=== PATIENT | female | born 1975 ===

== ENCOUNTER 2016-11-13 09:12 | Emergency (ER) | payer MEDICAID, OTHER ==
[2016-11-13 10:03] VITALS: BMI 34.0
[2016-11-13] MEDS ORDERED: Lactated Ringer's 1,000 ML IV SCH (10:15)
[2016-11-13 11:09] LABS: HEMOGLOBIN 10.2 g/dL (12.0-16.0); MEAN CORPUSCULAR HEMOGLOBIN 24.9 pg (27.0-31.0); MEAN CORPUSCULAR HGB CONC 30.7 g/dL (33.0-37.0); RBC 4.09 Mil/uL (3.80-5.20); RED CELL DISTRIBUTION WIDTH 14.8 % (11.5-14.5)
[2016-11-13 11:22] LABS: ALBUMIN 3.2 g/dL (3.5-5.0); ALT/SGPT 30 U/L (9-52); AST/SGOT 33 U/L (14-36); BLOOD UREA NITROGEN 5 mg/dl (7-17); CALCIUM 8.9 mg/dL (8.4-10.2); GFR AFRICAN-AMERICAN > 60; GFR NON-AFRICAN AMERICAN > 60
[2016-11-13 11:59] LABS: SQUAMOUS EPITHIAL 2 /hpf (0-5); URINE AMORPHOUS SEDIMENT RARE /ul (<OCC); URINE BACTERIA OCC (<OCC); URINE BILIRUBIN NEGATIVE (NEGATIVE); URINE BLOOD NEGATIVE (NEGATIVE); URINE CLARITY CLOUDY (Clear); URINE COLOR YELLOW (YELLOW); URINE GLUCOSE (UA) NEG (Normal); URINE HYALINE CAST 0-2 /hpf (0-2); URINE LEUKOCYTE ESTERASE NEG Leu/uL (Negative); URINE NITRATE NEGATIVE (NEGATIVE); URINE PROTEIN NEGATIVE (NEGATIVE); URINE UROBILINOGEN 0.2-1.0 mg/dL (0.2-1.0)
== END 2016-11-13 12:34 | disposition home or self-care (01) ==
LOC: H.EROB2 09:12 → H.L&D 09:28 → H.EROB2 12:34
DX: O47.1 False labor at or after 37 completed weeks of gestation (principal); Z3A.38 38 weeks gestation of pregnancy

== ENCOUNTER 2016-11-17 08:51 | Emergency (ER) | payer OTHER ==
--- NOTE | 2016-11-17 09:07 | OBHP ---
Datetime: 11/13/2016 13:29 IP Adm Impression: , intrauterine IP Chief Complaint Other: pelvic pressure IP Admit Plan: Observation/Evaluation; Discharge home Admit Comment, IP Provider: Patient is a @ 36.1 wks with complaint of pelvic pressure. Patie nt denies vaginal bleeding, leaking, +FM, some urinary frequency. Patient has a history of Gastric by pass, abdominalplasty, AMA, genital herpes, otherwise no abnormal antepartum issues, no other medical /surgical problems, taking Valcyclovir and vitamins, no allergies VE=3/50/-4 [id number] mod ernesto, +accels, no decels TOCO = no contractions A/P 1. Patient presented complaining of increased pelvic pressure. Patient was monitored for a few tito rs, VE=3cm, unchanged, no contractions noted. UA negative, WBC=13 but no abdominal tenderness, no fev er, no other complaints of labor or chorio 2. Patient ruled out for labor, will discharge home. Labor precautions reviewed, follow up with ap pointment in the office this week 11/17 Pelvic Type - PN: Adequate Extremities - PN: Normal Abdomen - PN: Normal Back - PN: Normal Breast - PN: Normal Lungs - PN: Normal Heart - PN: Normal Thyroid - PN: Normal Neurologic - PN: Normal HEENT - PN: Normal General - PN: Normal FHR - Baseline A Provider: 130 Contraction Comments Provider: none Vital Signs Provider: Reviewed; Within Normal Limits NICHD Variability Prov Fetus A: Moderate 6-25bpm NICHD Accel Fetus A IP Provider: 15X15 NICHD Decel Fetus A IP Provider: None Dilatation, Provider: 3 Effacement, Provider: 50 Station, Provider: -4 Genitourinary Exam: Normal DTRs - PN: Normal
[2016-11-17 09:22] VITALS: BMI 33.4
--- NOTE | 2016-11-18 13:59 | OBHP ---
Datetime: 11/17/2016 08:16 IP Adm Impression: , intrauterine ; No Active Labor IP Admit Plan: Observation/Evaluation; Discharge home Admit Comment, IP Provider: 41-year-old 0-3 at 36 weeks and 4 days gestational age presents to OB ED complaining abdominal pelvic discomfort. Patient denies any contractions, vaginal bleeding, wh ich includes. Patient reports good movement. Otherwise, patient without complaints Past medical history mild asthma, advanced maternal age, genital herpes Past surgical history abdominoplasty, breast augmentation, ectopic Medications vitamins, prophylactic Valtrex No known drug allergies Obstetrical history full-term normal spontaneous vaginal delivery 3 Social history no tobacco, drugs, no alcohol Physical exam: Deferred physical exam findings Assessment: Annual 0-3 at 36 weeks 4 days gestational age. No evidence of labor this time. Maternal well-being and well-being reassuring at this time. Plan: Discharge patient home. Patient to follow up in office as already scheduled. Pelvic Type - PN: Adequate Extremities - PN: Normal Abdomen - PN: Normal Back - PN: Normal Breast - PN: Normal Lungs - PN: Normal Heart - PN: Normal Thyroid - PN: Normal Neurologic - PN: Normal HEENT - PN: Normal General - PN: Normal FHR - Baseline A Provider: 130s-140s Membranes, Provider: Intact Contraction Comments Provider: none Pool Provider: Negative IP Hx Assessment: The History has been Reviewed and is Current EGA AdmitDate IP: 36.5 Vital Signs Provider: Reviewed; Within Normal Limits IP Chief Complaint: Maternal discomfort NICHD Variability Prov Fetus A: Moderate 6-25bpm NICHD Accel Fetus A IP Provider: 15X15 FHR Category Provider Fetus A: Category I NICHD Decel Fetus A IP Provider: None Dilatation, Provider: 1-2 Effacement, Provider: long Station, Provider: high Genitourinary Exam: Normal DTRs - PN: Normal
== END 2016-11-17 10:32 | disposition home or self-care (01) ==
LOC: H.EROB2 08:51 → H.EROB 09:28 → H.EROB2 10:32
DX: O47.1 False labor at or after 37 completed weeks of gestation (principal); Z3A.38 38 weeks gestation of pregnancy; O99.843 Bariatric surgery status complicating pregnancy, third trimester; O09.523 Supervision of elderly multigravida, third trimester

== ENCOUNTER 2016-11-22 08:00 | Emergency (ER) | payer OTHER ==
--- NOTE | 2016-11-22 09:01 | OBDCSUM ---
Datetime: 11/22/2016 08:54 Discharged to, Provider: Home Follow up at, Provider: Disch Instr Activity: Normal activity Disch Instr Diet: Regular Discharge Diagnosis, Provider: False Labor - Undelivered Discharge Time: 11/22/2016 08:55 Follow up in weeks, Provider: scheduled 1030 today Disch Referrals: None
--- NOTE | 2016-11-23 07:29 | OBHP ---
Datetime: 11/22/2016 08:40 IP Adm Impression: Term, intrauterine ; No Active Labor; Intact Membranes IP Admit Plan: Discharge home Admit Comment, IP Provider: c/o lower abd pain this am on and off not severe No SROM; no VB; +FM denies AP complicatoins prenatla care: Dr Akins 5MV; chart rev'd NKA PMH: denies POBGYNH: PSoH denies sml=oking; etoh ; drugs A: term preg not in labor PLAN: discharge home labor instructoins pre-eclampsia warning follow up as scheduled Dr NILSA AvilezMV office sono this thurs Pelvic Type - PN: Adequate Extremities - PN: Normal Abdomen - PN: Normal Back - PN: Normal Breast - PN: Not Done Lungs - PN: Normal Heart - PN: Normal Thyroid - PN: Normal Neurologic - PN: Not Done HEENT - PN: Normal General - PN: Normal Presentation-Admit: Vertex FHR - Baseline A Provider: 130 Membranes, Provider: Intact Comments, ACOG Physical Exam: ROS: General: no weakness; no fatigue HEENT: no WHITESIDE; no visual dist CV: no palpitations; no no CP GI: noN/V no diarhea No epigastric pain; non radiating : no F/U/D MS: No joint pain Pool Provider: Negative IP Hx Assessment: The History has been Reviewed and is Current EGA AdmitDate IP: 37.3 IP Chief Complaint: Uterine contractions NICHD Variability Prov Fetus A: Moderate 6-25bpm NICHD Accel Fetus A IP Provider: 15X15 Dilatation, Provider: 0 Effacement, Provider: 0 Station, Provider: high Genitourinary Exam: Normal DTRs - PN: Normal
== END 2016-11-22 12:00 | disposition home or self-care (01) ==
LOC: H.EROB2 08:00
DX: O47.1 False labor at or after 37 completed weeks of gestation (principal); Z3A.38 38 weeks gestation of pregnancy

== ENCOUNTER 2016-11-23 11:26 | Inpatient (IN) | payer OTHER ==
[2016-11-23 12:21] VITALS: BMI 34.7
[2016-11-23 13:21] VITALS: BP 123/65; PULSE 102; RESP 18; TEMP 98.4; O2SAT 98
[2016-11-23] MEDS ORDERED: Lactated Ringer's 1,000 ML IV SCH ×2 (13:24→17:30)
[2016-11-23] MEDS ORDERED: Oxytocin 30 units/LR 500ML 30 UNITS/500 ML BAG IV SCH (13:30)
--- NOTE | 2016-11-23 13:42 | OBADHP ---
Datetime: 11/23/2016 13:35 IP Chief Complaint Other: WHITESIDE and blurred vision Admit Comment, IP Provider: Patient is a @ 37.4 wks with a history of gastric bypass, AMA an d elevated BPs with WHITESIDE and blurred vision since yesterday. Patient has been recording her pressures a t home, have had multiple pressures as high as 140s/99s with HAs and blurred vision on/off. DIscussed case with M Dr. Schaefer and patient to be induced for pre-eclampsia with neurological features. P atient's last CBC/CMP showed normal labs, growth was 76%. Patient also has a history of HSV, is on pr ophylaxis with Valtrex VE=3/50/-3 [id number] mod ernesto, +accels, no decels TOCO=ctxning irregularly A/P 1. Patient to be admitted to labor and delivery for induction. Discussed case with Dr. Schaefer 2. IVf, CBC, type annd screen, CMP, LDH, urine 3. Pitocin for augmentation 4. Patient may have epidural for pain Pelvic Type - PN: Adequate Extremities - PN: Normal Abdomen - PN: Normal Back - PN: Normal Breast - PN: Normal Lungs - PN: Normal Heart - PN: Normal Thyroid - PN: Normal Neurologic - PN: Normal HEENT - PN: Normal General - PN: Normal Presentation-Admit: Vertex FHR - Baseline A Provider: 125 Vital Signs Provider: Reviewed; Within Normal Limits NICHD Variability Prov Fetus A: Marked >25bpm NICHD Accel Fetus A IP Provider: [id number] NICHD Decel Fetus A IP Provider: None Dilatation, Provider: 3 Effacement, Provider: 50 Station, Provider: -3 Genitourinary Exam: Normal DTRs - PN: Normal IP Adm Impression: Term, intrauterine IP Admit Plan: Admit to unit; Initiate labor induction protocol Datetime: 11/22/2016 08:40 Membranes, Provider: Intact Comments, ACOG Physical Exam: ROS: General: no weakness; no fatigue HEENT: no WHITESIDE; no visual dist CV: no palpitations; no no CP GI: noN/V no diarhea No epigastric pain; non radiating : no F/U/D MS: No joint pain Pool Provider: Negative IP Hx Assessment: The History has been Reviewed and is Current IP Chief Complaint: Uterine contractions EGA AdmitDate IP: 37.3 Datetime: 11/17/2016 08:16 Contraction Comments Provider: none FHR Category Provider Fetus A: Category I
[2016-11-23 14:07] LABS: RBC URINE < 1 /hpf (0-3); URINE BACTERIA RARE (<OCC); URINE BILIRUBIN NEGATIVE (NEGATIVE); URINE BLOOD NEGATIVE (NEGATIVE); URINE COLOR STRAW (YELLOW); URINE GLUCOSE (UA) NEG (Normal); URINE KETONE NEGATIVE (NEGATIVE); URINE LEUKOCYTE ESTERASE NEG Leu/uL (Negative); URINE PROTEIN NEGATIVE (NEGATIVE); URINE UROBILINOGEN 0.2-1.0 mg/dL (0.2-1.0); WBC URINE 1 /hpf (0-5)
[2016-11-23 14:11] LABS: HEMATOCRIT 33.9 % (34.0-47.0); MEAN CELL VOLUME 80.5 fl (81.0-99.0); MEAN CORPUSCULAR HEMOGLOBIN 25.5 pg (27.0-31.0); MEAN CORPUSCULAR HGB CONC 31.6 g/dL (33.0-37.0); RED CELL DISTRIBUTION WIDTH 15.3 % (11.5-14.5)
--- NOTE | 2016-11-23 14:45 | OBHP ---
Datetime: 11/23/2016 13:35 IP Adm Impression: Term, intrauterine IP Chief Complaint Other: WHITESIDE and blurred vision IP Admit Plan: Admit to unit; Initiate labor induction protocol Admit Comment, IP Provider: Patient is a @ 37.4 wks with a history of gastric bypass, AMA an d elevated BPs with WHITESIDE and blurred vision since yesterday. Patient has been recording her pressures a t home, have had multiple pressures as high as 140s/99s with HAs and blurred vision on/off. DIscussed case with M Dr. Schaefer and patient to be induced for pre-eclampsia with neurological features. P atient's last CBC/CMP showed normal labs, growth was 76%. Patient also has a history of HSV, is on pr ophylaxis with Valtrex. Patient continues to have WHITESIDE VE=350/-3 [id number] mod ernesto, +accels, no decels TOCO=ctxning irregularly A/P 1. Patient to be admitted to labor and delivery for induction. Discussed case with Dr. Schaefer 2. IVf, CBC, type annd screen, CMP, LDH, urine 3. Pitocin for augmentation 4. Patient may have epidural for pain Pelvic Type - PN: Adequate Extremities - PN: Normal Abdomen - PN: Normal Back - PN: Normal Breast - PN: Normal Lungs - PN: Normal Heart - PN: Normal Thyroid - PN: Normal Neurologic - PN: Normal HEENT - PN: Normal General - PN: Normal Presentation-Admit: Vertex FHR - Baseline A Provider: 125 Vital Signs Provider: Reviewed; Within Normal Limits IP Indication for Induction: Gest. HTN/PreEclampsia/Eclampsia NICHD Variability Prov Fetus A: Marked >25bpm NICHD Accel Fetus A IP Provider: [id number] NICHD Decel Fetus A IP Provider: None Dilatation, Provider: 3 Effacement, Provider: 50 Station, Provider: -3 Genitourinary Exam: Normal DTRs - PN: Normal Datetime: 11/22/2016 08:40 EGA AdmitDate IP: 37.3
[2016-11-23 15:24] LABS: GFR AFRICAN-AMERICAN > 60
[2016-11-23 15:38] LABS: CHLORIDE 105 mmol/L (98-107)
[2016-11-23 15:39] LABS: POTASSIUM 4.1 MMOL/L (3.6-5.0); SODIUM 135 mmol/l (132-148)
[2016-11-23 15:41] LABS: BILIRUBIN,TOTAL 0.3 mg/dl (0.2-1.3); CARBON DIOXIDE 25 mmol/L (22-30)
[2016-11-23 15:42] LABS: ALT/SGPT 28 U/L (9-52); AST/SGOT 32 U/L (14-36); BLOOD UREA NITROGEN 8 mg/dl (7-17); CALCIUM 8.8 mg/dL (8.4-10.2); GLUCOSE,RANDOM 78 mg/dL (65-105); TOTAL PROTEIN 6.6 G/DL (6.3-8.2)
[2016-11-23 16:00] LABS: ALB/GLOB RATIO 0.9 (1.0-2.1)
[2016-11-23 16:05] LABS: ALKALINE PHOSPHATASE 153 U/L (38-126)
[2016-11-23] MEDS ORDERED: Fentanyl/Bupivacaine HCl 250 ML EPI ONE (16:47)
[2016-11-23] MEDS ORDERED: Phenylephrine 10 mg/ml Inj ONE (17:23)
--- NOTE | 2016-11-23 18:24 | OBPN ---
Datetime: 11/23/2016 18:17 IP Progress Impression: Normal progression of labor IP Informed Consent Obtain: Vaginal Delivery IP Procedures: Sterile Vag Exam IP Progress Plan: Continue present management Membranes, Provider: Ruptured Contraction Comments Provider: q 3-4 mins FHR - Baseline A Provider: 130 IP Progress Note Comment: Patient had a post epidural deceleration for 2 mins with recovery and agai n for 2 mins. Patient had low BP and epinephrine was given for recovery. FHR now is 130 mod ernesto, +acc els, no decels, ctxning q 3-4 mins and Pitocin restarted. VE=5-6/70/-1. Patient progressing well, sti ll has on/off WHITESIDE. CBC/CMP, urine nml. WIll re-evaluate as needed Vital Signs Provider: Reviewed; Within Normal Limits NICHD Accel Fetus A IP Provider: 15X15 NICHD Variability Prov Fetus A: Moderate 6-25bpm Dilatation, Provider: 5-6 Effacement, Provider: 70 Station, Provider: -1 NICHD Decel Fetus A IP Provider: None Datetime: 11/23/2016 13:35 Presentation-Admit: Vertex Datetime: 11/22/2016 08:40 Pool Provider: Negative Datetime: 11/17/2016 08:16 FHR Category Provider Fetus A: Category I
[2016-11-23] MEDS ORDERED: Lidocaine 1% Inj (20ml) ONE (19:32)
[2016-11-23] MEDS ORDERED: Benzocaine/Menthol SPRAY TOP PRN (20:14)
[2016-11-23] MEDS ORDERED: Oxycodone/Acetaminophen 5/325 mg Tab PO PRN ×2 (20:14)
--- NOTE | 2016-11-23 20:14 | OBDS ---
MATERNAL INFORMATION Provider Comments: of live female over intact perineum, 9/9 APGARS, followed by shoulder s and rest of infant, mouth and nose suctioned, cord clamped and cut, placed on mother's chest , cord blood obtained, placenta delivered spontaneously, fundus firm, EBL = 100ml, no lacerations, pa tient tolerated procedure LABOR SUMMARY EDC: 12/10/2016 00:00 No. Babies in Womb: 1 LABOR INFORMATION Group B Beta Strep: Negative MEMBRANES Membranes Rupture Method: Artificial Rupture of Membranes: 11/23/2016 14:15 Amniotic Fluid Color: Clear Amniotic Fluid Amount: Moderate Amniotic Fluid Odor: Normal
[2016-11-24] MEDS ORDERED: Oxycodone/Acetaminophen 5/325 mg Tab PO PRN ×2 (01:28)
[2016-11-24] MEDS ORDERED: Benzocaine/Menthol SPRAY TOP PRN (01:28)
[2016-11-24 06:19] LABS: BASO % 0.1 % (0.0-2.0); EOS # 0.1 K/uL (0.0-0.7); EOS % 0.4 % (0.0-4.0); HEMATOCRIT 32.2 % (34.0-47.0); LYMPH # 2.9 K/uL (1.0-4.3); LYMPH % 18.4 % (20.0-40.0); MEAN CELL VOLUME 80.3 fl (81.0-99.0); MEAN CORPUSCULAR HEMOGLOBIN 24.5 pg (27.0-31.0); MEAN CORPUSCULAR HGB CONC 30.5 g/dL (33.0-37.0); MONO # 1.4 K/uL (0.0-0.8); MONO % 8.9 % (0.0-10.0); NEUT # 11.4 K/uL (1.8-7.0); NEUT % 72.2 % (50.0-75.0); NRBC % 0.1 % (0.0-0.0); RED CELL DISTRIBUTION WIDTH 14.9 % (11.5-14.5); WHITE BLOOD COUNT 15.8 K/uL (4.8-10.8)
--- NOTE | 2016-11-24 08:25 | OBPPN ---
Datetime: 11/24/2016 08:21 PP Pain Prov: Within normal limits PP Abdomen/Uterus Prov: Normal PP Lochia Prov: Normal PP Extremities Prov: Normal PP Impression Prov: Normal progression PP Plan Prov: Continue present management PP Progress Note Prov: PPD 1 s/p , doing well, bottle feeding only for now Continue curret management Vital Signs Provider PP: Reviewed
[2016-11-24] MEDS ORDERED: Multivitamin With Minerals Tab PO SCH (09:00)
[2016-11-24] MEDS: Multivitamin With Minerals Tab PO SCH (09:39)
[2016-11-25 08:36] LABS: BASO # 0.1 K/uL (0.0-0.2); BASO % 0.6 % (0.0-2.0); EOS # 0.1 K/uL (0.0-0.7); EOS % 1.5 % (0.0-4.0); HEMATOCRIT 33.8 % (34.0-47.0); LYMPH # 3.2 K/uL (1.0-4.3); LYMPH % 33.7 % (20.0-40.0); MEAN CELL VOLUME 81.4 fl (81.0-99.0); MEAN CORPUSCULAR HGB CONC 30.7 g/dL (33.0-37.0); MONO # 0.7 K/uL (0.0-0.8); MONO % 7.6 % (0.0-10.0); NEUT # 5.4 K/uL (1.8-7.0); NEUT % 56.6 % (50.0-75.0); NRBC % 0.1 % (0.0-0.0); RED CELL DISTRIBUTION WIDTH 15.3 % (11.5-14.5); WHITE BLOOD COUNT 9.6 K/uL (4.8-10.8)
[2016-11-25] MEDS: Multivitamin With Minerals Tab PO SCH (09:22)
--- NOTE | 2016-11-25 11:22 | OBDCSUM ---
Datetime: 11/25/2016 11:19 Discharged to, Provider: Home Follow up at, Provider: Mode Disch Instr Activity: Normal activity Disch Instr Diet: Regular Discharge Instructions, Provider: Routine instructions given Discharge Diagnosis, Provider: Term Delivered Follow up in weeks, Provider: 6 weeks Disch Referrals: None Contraception discussed, Prov: Yes Disch Activity Restrictions: Nothing in vagina - Struthers, tampons, douche Discharge Comment, Provider: Doing well Contraception after Delivery: Undecided Datetime: 11/22/2016 08:54 Discharge Instructions, Provider: Routine instructions given Discharge Diagnosis, Provider: Term Delivered; False Labor - Undelivered Contraception discussed, Prov: Yes Contraception after Delivery: Undecided
== END 2016-11-25 12:25 | disposition home or self-care (01) | DRG 372 ==
LOC: H.EROB2 11:26 → H.L&D 13:24 → H.OB/GYN 22:45
PROVIDERS: ADMIT Obstetrics & Gynecology; ATTEND Obstetrics & Gynecology
PROC: 10E0XZZ Delivery of Products of Conception, External Approach (ICD-10-PCS; principal; 2016-11-23)
PROC: 4A1HXCZ Monitoring of Products of Conception, Cardiac Rate, External Approach (ICD-10-PCS; 2016-11-23)
DX: O13.4 Gestational [pregnancy-induced] hypertension without significant proteinuria, complicating childbirth (principal); O99.844 Bariatric surgery status complicating childbirth; Z37.0 Single live birth; Z3A.37 37 weeks gestation of pregnancy; O09.523 Supervision of elderly multigravida, third trimester